=== PATIENT | female | born 1965 | race Caucasian/White ===

== ENCOUNTER 2018-12-18 15:41 | Inpatient (IN) ==
[2018-12-18 15:56] VITALS: BMI 45.4
[2018-12-18] MEDS ORDERED: DUONEB 0.5 MG/3 MG NEB ONE (16:12)
[2018-12-18] MEDS ORDERED: SOLU-Medrol 125 MG VIAL IVP ONE (16:12)
[2018-12-18 16:13] LABS: ABG BASE EXCESS 12.9 mmol/L (-2.0-2.0)
[2018-12-18 16:15] LABS: ABG HCO3 42.2 mmol/L (22-26)
--- NOTE | 2018-12-18 16:20 | DR.SOBA ---
HPI Time Seen Time Seen by Provider: 12/18/18 15:58 Primary Care Physician Primary Care Physician: ERASMO FAULKNER, BIRTH CERTIFICATE CLERK Complaints Chief Complaint Doctors Comments: Pt. is a very poor historian. She contributed nothing to hx. She states she feels good and when asked she denies dyspna. Story is that she was with her BIRTH CERTIFICATE CLERK today and was noted with a low O2 sat ( 74 %) in the office, hence she was sent to the ED. Her mother provided history on her beh care home. Chief Complaint:: PT WAS SENT HERE FROM ERASMO FAULKNER'S OFFICE TODAY AFTER BEING SEEN IN OFFICE FOR SOB. OXYGEN SAT IN OFFICE WAS 74%. PT STATES SHE HASN'T FELT GOOD IN A FEW DAYS. C/O COLD, COUGH AND CONGESTION AND STATES THAT SHE THINKS SHE HAS GAINED 30 POUNDS IN PAST WEEK. Source History Provided: Patient Mode of Arrival Mode of Arrival: Ambulatory Timing Onset of Chief Complaint: 12/18/18 PMH PMH Past Medical History: Yes Past Medical History: COPD and Schizophrenia Past Medical History Comment: BIPOLAR Past Surgical History: Yes Surgical History: Hysterectomy Family History History of Family Medical Conditions: No Social History Does patient currently use any type of tobacco product: Yes Have you used tobacco products in the last 12 months: Yes Type of Tobacco Use: Cigarettes Does any household member use tobacco: Yes Alcohol Use: None Do you use any recreational Drugs:: No Lives With: Family Lives Where: Home infectious screening In the last 2 months have you had wt loss of >10#?: NO Have you had fever, night sweats or hemotysis?: No Have you traveled outside the country in the last 6 months?: No Isolation: Standard ROS Review of Systems Constitutional: Other (Weight gain) Eyes: No Symptoms Reported ENTM: No Symptoms Reported Respiratoy: No Symptoms Reported Cardiovascular: No Symptoms Reported Gastrointestinal/Abdominal: No Symptoms Reported Genitourinary: No Symptoms Reported Neurological: No Symptoms Reported Musculoskeletal: No Symptoms Reported Integumentary: No Symptoms Reported Hematologic/Lymphatic: No Symptoms Reported Endocrine: No Symptoms Reported Psychiatric: No Symptoms Reported PE Vital Signs Vitals: Temperature 97.8 F Pulse Rate [Apical] 96 Pulse Rate 84 Respiratory Rate 25 Blood Pressure [Left Arm] 162/73 Blood Pressure 156/71 O2 Sat by Pulse Oximetry 90 General Limitations: Physical Limitation (morbid obesity) General Appearance: Alert and In No Apparent Distress Head Head Exam: Normal Inspection, Atraumatic and Normocephalic Eyes Eye exam: Normal Appearance, PERRL and EOMI ENT ENT Exam: Normal Exam, Normal Oropharynx and Mucous Membranes Moist Neck Neck Exam: Normal Inspection, Full ROM and Trachea Midline Chest Chest Inspection: Normal Inspection and Symmetric Chest Wall Rise Respiratory Respiratory Exam: Normal Lung Sounds Bilat Cardiovascular Cardiovascular Exam: Regular Rate, Normal Rhythm, +S1 and +S2 Abdominal Exam Abdominal Exam: Normal Inspection, Normal Bowel Sounds and Soft Extremities Extremities Exam: Normal Inspection and Edema Neurologic Neurological Exam: Alert and Other (oriented to self) Psychiatric Psychiatric Exam: Normal Affect and Normal Mood Skin Skin Exam: Warm, Dry and Normal Color ROR Labs Reviewed Laboratory Results Reviewed?: Yes Result Diagrams: 12/18/18 16:00 12/18/18 16:00 Laboratory: WBC 11.2 X10^3/uL (3.6-10.0) H 12/18/18 16:00 RBC 5.05 X10^6/uL (3.5-5.4) 12/18/18 16:00 Hgb 13.9 g/dL (12.0-16.0) 12/18/18 16:00 Hct 42.6 % (36.0-47.0) 12/18/18 16:00 MCV 84.3 fL (80.0-100.0) 12/18/18 16:00 MCH 27.5 pg (27.0-34.0) 12/18/18 16:00 MCHC 32.6 g/dL (33.0-35.0) L 12/18/18 16:00 RDW 17.8 % (11.6-16.5) H 12/18/18 16:00 Plt Count 305 X10^3/uL (150.0-450.0) 12/18/18 16:00 MPV 8.4 fL (7.4-11.0) 12/18/18 16:00 Neut % (Auto) 66.7 % (42.0-75.0) 12/18/18 16:00 Lymph % (Auto) 23.1 % (21.0-51.0) 12/18/18 16:00 [place] % (Auto) 7.2 % (0.0-13.0) 12/18/18 16:00 Eos % (Auto) 2.6 % (0.9-2.9) 12/18/18 16:00 Baso % (Auto) 0.4 % (0.2-1.0) 12/18/18 16:00 Neut # (Auto) 7.5 x10^3/uL (2.2-4.8) H 12/18/18 16:00 Lymph # (Auto) 2.6 X10^3/uL (1.3-2.9) 12/18/18 16:00 [place] # (Auto) 0.8 x10^3/uL (0.3-0.8) 12/18/18 16:00 Eos # (Auto) 0.3 x10^3/uL (0.0-0.2) H 12/18/18 16:00 Baso # (Auto) 0.0 X10^3/uL (0.0-0.1) 12/18/18 16:00 Absolute Nucleated RBC 0.5 /100WBC 12/18/18 16:00 Sample Site Right brachial 12/18/18 16:08 ABG pH 7.330 (7.35-7.45) L 12/18/18 16:08 ABG pCO2 80.0 mmHg (35.0-45.0) H* 12/18/18 16:08 ABG pO2 49.0 mmHg (80.0-100.0) L* 12/18/18 16:08 ABG HCO3 42.2 mmol/L (22-26) H* 12/18/18 16:08 ABG O2 Saturation 81.0 % (90-100) L* 12/18/18 16:08 ABG Base Excess 12.9 mmol/L (-2.0-2.0) H 12/18/18 16:08 Chong Test Na 12/18/18 16:08 A-a Gradient 65.0 mmHg 12/18/18 16:08 FiO2 30.0 12/18/18 16:08 Blood Gas Comments Neisha well aw 12/18/18 16:08 Sodium 125 mmol/L (136-145) L* 12/18/18 16:00 Corrected Sodium 126 mmol/L (136-145) L 12/18/18 16:00 Potassium 4.4 mmol/L (3.5-5.1) 12/18/18 16:00 Chloride 87 mmol/L (98-107) L 12/18/18 16:00 Carbon Dioxide 36.6 mmol/L (21-32) H 12/18/18 16:00 BUN 5 mg/dL (7-18) L 12/18/18 16:00 Creatinine 0.60 mg/dL (0.55-1.02) 12/18/18 16:00 Est GFR (MDRD) Af Amer > 60 (>60) 12/18/18 16:00 Est GFR (MDRD) Non-Af > 60 (>60) 12/18/18 16:00 Glucose 153 mg/dL (65-99) H 12/18/18 16:00 Calcium 8.4 mg/dL (8.5-10.1) L 12/18/18 16:00 Corrected Calcium 9.2 mg/dL (8.5-10.1) 12/18/18 16:00 Total Bilirubin 0.30 mg/dL (0.2-1.0) 12/18/18 16:00 AST 36 Units/L (15-37) 12/18/18 16:00 ALT 80 Units/L (12-78) H 12/18/18 16:00 Alkaline Phosphatase 90 Units/L (46-116) 12/18/18 16:00 B-Natriuretic Peptide 78.3 pg/mL (0-79) 12/18/18 16:00 Total Protein 6.6 g/dL (6.4-8.2) 12/18/18 16:00 Albumin 3.0 g/dL (3.4-5.0) L 12/18/18 16:00 Globulin 3.6 g/dL (2.5-4.5) 12/18/18 16:00 Albumin/Globulin Ratio 0.8 Ratio (1.1-2.1) L 12/18/18 16:00 TSH 3rd Generation 3.457 uIU/mL (0.358-3.74) 12/18/18 16:00 Specimen Type Catherized urine 12/18/18 16:38 Urine Color Yellow (YELLOW) 12/18/18 16:38 Urine Appearance Clear (CLEAR) 12/18/18 16:38 Urine pH 7.0 (5.0 - 8.0) 12/18/18 16:38 Ur Specific [place] 1.005 (1.000-1.030) 12/18/18 16:38 Urine Protein Negative (NEGATIVE) 12/18/18 16:38 Urine Glucose (UA) Negative (NEGATIVE) 12/18/18 16:38 Urine Ketones Negative (NEGATIVE) 12/18/18 16:38 Urine Occult Blood Negative (NEGATIVE) 12/18/18 16:38 Urine Nitrite Negative (NEGATIVE) 12/18/18 16:38 Urine Bilirubin Negative (NEGATIVE) 12/18/18 16:38 Urine Urobilinogen Normal (NORMAL) 12/18/18 16:38 Ur Leukocyte Esterase Negative (NEGATIVE) 12/18/18 16:38 XRAY XRAY Interpreted by: Radiologist XRAY Findings: CXR: Cardiomegaly with findings consistent with COPD. EKG Rate: 86 [place]: Normal Rhythm: NSR Block: None Hypertrophy: None Diagnosis Discharge Problem: Acute exacerbation of chronic obstructive pulmonary disease (COPD), Hyponatremia Schizophrenia Qualifiers: Schizophrenia type: undifferentiated schizophrenia Qualified Code(s): F20.3 - Undifferentiated schizophrenia
[2018-12-18] MEDS ORDERED: SOLU-Medrol 125 MG VIAL ONE (16:25)
--- NOTE | 2018-12-18 16:37 | RAD ---
HISTORY: 53-year-old female with hypoxia and history of COPD. Study: Frontal view of the chest. Comparison: None. Findings: The trachea is midline. The cardiac silhouette is enlarged with prominent interstitium and perihilar lung markings. The lungs are clear without focal consolidation, effusion or pneumothorax. Soft tissues are unremarkable. Osseous structures are unremarkable. IMPRESSION: 1. Cardiomegaly with findings consistent with history of COPD. Reported By:
[2018-12-18 16:47] LABS: BILIRUBIN,URINE NEGATIVE (NEGATIVE); BLOOD/HEMOGLOBIN,URINE NEGATIVE (NEGATIVE); GLUCOSE, URINE NEGATIVE (NEGATIVE); KETONES,URINE NEGATIVE (NEGATIVE); LEUKOCYTE ESTERASE ,URINE NEGATIVE (NEGATIVE); NITRITES,URINE NEGATIVE (NEGATIVE); PROTEIN,URINE NEGATIVE (NEGATIVE); UROBILINOGEN,URINE NORMAL (NORMAL)
[2018-12-18 16:52] LABS: APPEARANCE,URINE CLEAR (CLEAR); COLOR,URINE YELLOW (YELLOW)
[2018-12-18 17:01] LABS: BASOPHILS % (AUTO) 0.4 % (0.2-1.0); EOSINOPHILS # (AUTO) 0.3 x10^3/uL (0.0-0.2); EOSINOPHILS % (AUTO) 2.6 % (0.9-2.9); HEMATOCRIT 42.6 % (36.0-47.0); HEMOGLOBIN 13.9 g/dL (12.0-16.0); LYMPHOCYTES # (AUTO) 2.6 X10^3/uL (1.3-2.9); LYMPHOCYTES % (AUTO) 23.1 % (21.0-51.0); MEAN CORPUSCULAR HEMOGLOBIN 27.5 pg (27.0-34.0); MEAN CORPUSCULAR HGB CONC 32.6 g/dL (33.0-35.0); MEAN CORPUSCULAR VOLUME 84.3 fL (80.0-100.0); MEAN PLATELET VOLUME 8.4 fL (7.4-11.0); MONOCYTES # (AUTO) 0.8 x10^3/uL (0.3-0.8); MONOCYTES % (AUTO) 7.2 % (0.0-13.0); NEUTROPHILS # (AUTO) 7.5 x10^3/uL (2.2-4.8); NEUTROPHILS % (AUTO) 66.7 % (42.0-75.0); PLATELET COUNT 305 X10^3/uL (150.0-450.0); RED BLOOD COUNT 5.05 X10^6/uL (3.5-5.4); RED CELL DISTRIBUTION WIDTH 17.8 % (11.6-16.5); WHITE BLOOD COUNT 11.2 X10^3/uL (3.6-10.0)
[2018-12-18 17:06] LABS: BLOOD UREA NITROGEN 5 mg/dL (7-18); CALCIUM 8.4 mg/dL (8.5-10.1); CARBON DIOXIDE 36.6 mmol/L (21-32); CHLORIDE 87 mmol/L (98-107); COR NA(FOR HYPERGLY) 126 mmol/L (136-145); eGFR NON BLACK RACES > 60 (>60)
[2018-12-18 17:19] LABS: ALANINE AMINOTRANSFERASE 80 Units/L (12-78); ALKALINE PHOSPHATASE 90 Units/L (46-116); ASPARTATE AMINO TRANSFERASE 36 Units/L (15-37); COR CA(FOR HYPOALB) 9.2 mg/dL (8.5-10.1); TOTAL PROTEIN 6.6 g/dL (6.4-8.2); TSH (3RD GENERATION) 3.457 uIU/mL (0.358-3.74)
[2018-12-18 17:21] LABS: SODIUM 125 mmol/L (136-145)
[2018-12-18] MEDS ORDERED: DUONEB 0.5 MG/3 MG ONE (17:34)
[2018-12-18] MEDS ORDERED: NICOTINE PATCH TD ONE (17:47)
[2018-12-18] MEDS ORDERED: ATIVAN INJ 2 MG VIAL ONE (17:53)
[2018-12-18] MEDS ORDERED: LASIX IVP ONE ×2 (17:55→18:00)
[2018-12-18] MEDS ORDERED: ATIVAN INJ 2 MG VIAL IVP ONE (17:55)
[2018-12-18] MEDS ORDERED: HALDOL INJ ONE (19:25)
[2018-12-18] MEDS: HALDOL INJ IM PRN (19:33)
[2018-12-18] MEDS: ATIVAN INJ 2 MG VIAL IVP PRN (21:06)
--- NOTE | 2018-12-18 22:01 | DR.H&P ---
H&P - History & Physical for Day of: H&P Date: 12/18/18 - Chief Complaint Chief Complaint: SOB, C/C/C - History of Present Illness History of Present Illness: IS A 53 YEAR OLD PATIENT OF OURS. SHE PRESENTED TO ER WITH COMPLAINTS OF SHORTNESS OF BREATH, COUGH, COLD, CONGESTION, AND WEIGHT GAIN. SHE WAS SEEN IN THE OFFICE TODAY AND WAS NOTED WITH OXYGEN SATURATIONS IN THE 70S. SHE WAS SENT TO THE ER FOR FURTHER EVALUATION. SHE HAS A MEDICAL HISTORY OF COPD, SCHIZOPHRENIA, AND BIPOLAR DISORDER. ON ARRIVAL, VITALS WERE 97.8-87-18-88%-160/81. LABS WERE OBTAINED. ABNORMAL LAB VALUES INCLUDE THE FOLLOWING: WBC 11.2, SODIUM 125, CHLORIDE 87, CARBON DIOXIDE 36.6, BUN 5, GLUCOSE 153, CALCIUM 8.4. ALT 80, ALBUMIN 3.0. ABG REVEALED: PH 7.330, PC02 80.0, P02 49.0, HC03 42.2, 02 SATURATION 81.0, BASE EXCESS 12.9. CHEST XRAY OBTAINED AND REVEALED: Cardiomegaly with findings consistent with history of COPD. EKG REVEALED: SINUS RHYTHM WITH HR 86. SHE WAS PLACED ON THE BIPAP. PATIENT BECAME AGITATED AND REFUSED TO WEAR BIPAP. SHE AGREED TO WEAR THE VENTIMASK. SHE WAS GIVEN LASIX 40MG IV X 1, ATIVAN 1MG IV X 1, SOLU-MEDROL 125MG IV X 1, AND A DUONEB IN THE ER. SHE WAS ADMITTED FOR FURTHER EVALUATION AND TREATMENT OF COPD EXACERBATION, HYPONATREMIA, AND CHF. SHE WAS STARTED ON RESPIRATORY TREATMENTS, SOLU-MEDROL 80MG IV Q8H, LORAZEPAN 1MG IV Q3-4H PRN, AND HALDOL 2.5MG IM Q8H PRN. WE PLAN TO FOLLOW UP WITH AM LABS AND CHEST XRAY AND CONTINUE TO MONITOR. - Past Medical History Past Medical History: Schizophrenia, COPD - Past Surgical History Surgical History: Hysterectomy - Social History Does patient currently use any type of tobacco product: Yes Have you used tobacco products in the last 12 months: Yes Type of Tobacco Use: Cigarettes Does any household member use tobacco: Yes Alcohol Use: None - Medications Home Medications: codeine Allergy (Verified 12/18/18 15:59) CONTINUE taking the following medications benztropine 1 mg PO DAILY 12/18/18 [History] cariprazine [Vraylar] 1.5 mg PO DAILY 12/18/18 [History] cefdinir 300 mg PO BID 12/18/18 [History] clonazepam 0.5 mg PO BID 12/18/18 [History] divalproex 1,000 mg PO HS 12/18/18 [History] haloperidol 10 mg PO BID 12/18/18 [History] quetiapine 50 mg PO BID 12/18/18 [History] - Review of Systems Constitutional: Malaise Eyes: No Symptoms Reported ENT: Nose Congestion Respiratory: Cough, Shortness of Breath, SOB with Excertion Cardiovascular: Edema (lower extremities ) Gastrointestinal: No Symptoms Reported Genitourinary: No Symptoms Reported Musculoskeletal: No Symptoms Reported Skin: No Symptoms Reported Neurological: Weakness - Physical Exam Vital Signs: Temperature 97.8 F Pulse Rate [Apical] 96 Pulse Rate 84 Respiratory Rate 25 Blood Pressure [Left Arm] 162/73 Blood Pressure 156/71 O2 Sat by Pulse Oximetry 90 Oriented: Normal Eyes: Normal Ear: Normal Nose: Normal Throat: Normal Respiratory: Wheezes Throughout Cardiovascular: Normal : Normal Auscultation: Bowel Sounds: Normal Palpation: Normal Tenderness: Normal Skin: Normal Musculoskeletal: Normal Psychiatric: Anxiety, Agitation Mood Description: Anxious Affect: Anxious Speech Pattern: Clear - Assessment/Plan (1) Acute exacerbation of chronic obstructive pulmonary disease (COPD) Status: Acute Plan: solu-medrol 80mg iv q8h, respiratory tx, supplemental oxygen, bipap, monitor labs and chest xray (2) CHF (congestive heart failure) Qualifiers: Heart failure type: unspecified Heart failure chronicity: acute Qualified Code(s): I50.9 - Heart failure, unspecified Status: Acute Plan: obtain echo, continue to monitor (3) Hyponatremia Status: Acute Plan: continue to monitor (4) Schizophrenia Qualifiers: Schizophrenia type: undifferentiated schizophrenia Qualified Code(s): F20.3 - Undifferentiated schizophrenia Status: Acute Plan: haldol iv prn, ativan iv prn, continue home meds - Allergies Allergies/Adverse Reactions: Allergies Allergy/AdvReac Type Severity Reaction Status Date / Time codeine Allergy Verified 12/18/18 15:59
[2018-12-18] MEDS: DUONEB 0.5 MG/3 MG NEB SCH (22:17)
[2018-12-19] MEDS: SOLU-Medrol 40 MG VIAL IVP SCH ×4 (01:53→21:05)
[2018-12-19 05:18] LABS: ABG PCO2 > 115.0 mmHg (35.0-45.0)
[2018-12-19] MEDS ORDERED: HumuLIN R SUBCUT PRN (05:52)
[2018-12-19 06:09] LABS: BASOPHILS % (AUTO) 0.1 % (0.2-1.0); HEMATOCRIT 43.6 % (36.0-47.0); HEMOGLOBIN 14.1 g/dL (12.0-16.0); LYMPHOCYTES # (AUTO) 0.3 X10^3/uL (1.3-2.9); LYMPHOCYTES % (AUTO) 2.9 % (21.0-51.0); MEAN CORPUSCULAR HEMOGLOBIN 27.4 pg (27.0-34.0); MEAN CORPUSCULAR HGB CONC 32.4 g/dL (33.0-35.0); MEAN CORPUSCULAR VOLUME 84.7 fL (80.0-100.0); MEAN PLATELET VOLUME 7.8 fL (7.4-11.0); MONOCYTES # (AUTO) 0.2 x10^3/uL (0.3-0.8); MONOCYTES % (AUTO) 1.4 % (0.0-13.0); NEUTROPHILS # (AUTO) 10.2 x10^3/uL (2.2-4.8); NEUTROPHILS % (AUTO) 95.6 % (42.0-75.0); PLATELET COUNT 268 X10^3/uL (150.0-450.0); RED BLOOD COUNT 5.14 X10^6/uL (3.5-5.4); RED CELL DISTRIBUTION WIDTH 17.9 % (11.6-16.5); WHITE BLOOD COUNT 10.7 X10^3/uL (3.6-10.0)
[2018-12-19 06:25] LABS: ALANINE AMINOTRANSFERASE 77 Units/L (12-78); ALBUMIN 2.8 g/dL (3.4-5.0); ALKALINE PHOSPHATASE 87 Units/L (46-116); ASPARTATE AMINO TRANSFERASE 29 Units/L (15-37); BLOOD UREA NITROGEN 6 mg/dL (7-18); CALCIUM 8.4 mg/dL (8.5-10.1); CARBON DIOXIDE 39.6 mmol/L (21-32); CHLORIDE 93 mmol/L (98-107); COR CA(FOR HYPOALB) 9.4 mg/dL (8.5-10.1); COR NA(FOR HYPERGLY) 133 mmol/L (136-145); CREATININE 0.55 mg/dL (0.55-1.02); SODIUM 131 mmol/L (136-145); TOTAL PROTEIN 6.6 g/dL (6.4-8.2); eGFR NON BLACK RACES > 60 (>60)
[2018-12-19 06:56] LABS: ABG BASE EXCESS 16.1 mmol/L (-2.0-2.0)
[2018-12-19 06:57] LABS: ABG HCO3 48.4 mmol/L (22-26)
[2018-12-19 07:00] LABS: PLATELET MORPHOLOGY COMMENT NORMAL (NORMAL)
--- NOTE | 2018-12-19 07:49 | RAD ---
History: Shortness of breath and hypoxia Study: AP chest Comparison: Yesterday Findings: There is unchanged mild to moderate cardiomegaly. There is no significant effusion. There is mild diffuse interstitial lung disease. There is no atelectasis or focal consolidation. Impression: Mild cardiomegaly. No definite acute disease Reported By:
[2018-12-19 08:29] LABS: ABG BASE EXCESS 18.6 mmol/L (-2.0-2.0)
[2018-12-19 08:30] LABS: ABG HCO3 48.6 mmol/L (22-26)
[2018-12-19] MEDS: DUONEB 0.5 MG/3 MG NEB SCH ×4 (09:02→20:29)
[2018-12-19] MEDS: ATIVAN INJ 2 MG VIAL IVP PRN ×5 (09:09→22:07)
[2018-12-19] MEDS: HALDOL INJ IM PRN ×2 (09:09→17:47)
[2018-12-19] MEDS: BENADRYL INJ 50 MG VIAL IVP PRN ×4 (10:55→22:40)
[2018-12-19] MEDS: LOVENOX INJ 100 MG SYR SC SCH ×2 (11:03→20:32)
[2018-12-19] MEDS: PULMICORT NEB TX 0.5 MG NEB SCH ×2 (11:22→20:30)
[2018-12-19] MEDS: DIFLUCAN 100 MG IV (MIX by PHARMACY)* 100 MG/50 ML BAG IV SCH (11:51)
[2018-12-19] MEDS: SNACK - Diabetic Appropriate PO SCH (19:45)
[2018-12-20] MEDS: ATIVAN INJ 2 MG VIAL IVP PRN ×5 (03:50→20:56)
[2018-12-20] MEDS: BENADRYL INJ 50 MG VIAL IVP PRN ×4 (03:51→18:27)
[2018-12-20 04:20] LABS: ABG HCO3 53.7 mmol/L (22-26)
[2018-12-20] MEDS: HALDOL INJ IM PRN ×3 (04:52→15:36)
[2018-12-20] MEDS: SOLU-Medrol 40 MG VIAL IVP SCH ×3 (05:48→21:10)
[2018-12-20 06:43] LABS: BASOPHILS % (AUTO) 0.2 % (0.2-1.0); HEMATOCRIT 43.9 % (36.0-47.0); HEMOGLOBIN 13.8 g/dL (12.0-16.0); LYMPHOCYTES # (AUTO) 0.8 X10^3/uL (1.3-2.9); LYMPHOCYTES % (AUTO) 4.9 % (21.0-51.0); MEAN CORPUSCULAR HGB CONC 31.5 g/dL (33.0-35.0); MEAN CORPUSCULAR VOLUME 85.6 fL (80.0-100.0); MEAN PLATELET VOLUME 8.3 fL (7.4-11.0); MONOCYTES # (AUTO) 1.8 x10^3/uL (0.3-0.8); MONOCYTES % (AUTO) 11.4 % (0.0-13.0); NEUTROPHILS % (AUTO) 83.5 % (42.0-75.0); PLATELET COUNT 277 X10^3/uL (150.0-450.0); RED BLOOD COUNT 5.13 X10^6/uL (3.5-5.4); RED CELL DISTRIBUTION WIDTH 17.8 % (11.6-16.5); WHITE BLOOD COUNT 15.5 X10^3/uL (3.6-10.0)
--- NOTE | 2018-12-20 06:50 | RAD ---
HISTORY: Hypoxia, shortness of breath Study: Chest AP portable Comparison: 12/19/2018 Findings: Heart remains enlarged. No definite congestive heart failure is noted. No definite acute alveolar infiltrates or pleural effusions are identified. Interstitial lung disease is unchanged. The bony thorax is unremarkable. IMPRESSION: Persistent cardiomegaly without definite congestive heart failure No acute alveolar infiltrates. Reported By:
[2018-12-20 07:00] LABS: ALANINE AMINOTRANSFERASE 62 Units/L (12-78); ALBUMIN 2.8 g/dL (3.4-5.0); ALKALINE PHOSPHATASE 79 Units/L (46-116); ASPARTATE AMINO TRANSFERASE 26 Units/L (15-37); BLOOD UREA NITROGEN 11 mg/dL (7-18); CHLORIDE 95 mmol/L (98-107); COR NA(FOR HYPERGLY) 140 mmol/L (136-145); CREATININE 0.59 mg/dL (0.55-1.02); SODIUM 139 mmol/L (136-145); TOTAL PROTEIN 6.6 g/dL (6.4-8.2); eGFR NON BLACK RACES > 60 (>60)
[2018-12-20 07:03] LABS: CARBON DIOXIDE 41.1 mmol/L (21-32)
[2018-12-20] MEDS: PULMICORT NEB TX 0.5 MG NEB SCH ×2 (08:35→20:31)
[2018-12-20] MEDS: DUONEB 0.5 MG/3 MG NEB SCH ×4 (08:35→20:31)
[2018-12-20] MEDS: LOVENOX INJ 100 MG SYR SC SCH ×2 (09:00→20:55)
[2018-12-20] MEDS: DIFLUCAN 100 MG IV (MIX by PHARMACY)* 100 MG/50 ML BAG IV SCH (10:00)
[2018-12-20] MEDS ORDERED: GLUCOPHAGE ONE ×2 (10:57→20:33)
[2018-12-20] MEDS: SEROquel TAB 100 MG PO SCH ×2 (11:04→17:21)
[2018-12-20] MEDS: KLONOPIN TAB 0.5 MG PO SCH ×3 (11:05→20:55)
[2018-12-20] MEDS: COGENTIN TAB 1 MG PO SCH ×2 (11:05→11:33)
[2018-12-20] MEDS: GLUCOPHAGE PO SCH ×3 (11:05→20:58)
[2018-12-20] MEDS: CARIPRAZINE 1.5 MG PO SCH (11:32)
[2018-12-20 19:49] LABS: ABG HCO3 53.2 mmol/L (22-26)
[2018-12-20] MEDS ORDERED: DEPAKOTE ER PO SCH (21:00)
--- NOTE | 2018-12-20 21:22 | PCM.PROG ---
Progress Note - Progress Note for Day of Date of Exam: 12/19/18 - Subjective Subjective: WAS ADMITTED FOR COPD EXACERBATION, HYPONATREMIA, AND CHF. HYPONATREMIA IS LIKELY RELATED TO THE MEDICATIONS THAT SHE IS ON FOR SCHIZOPHRENIA AND BIPOLAR DISORDER. TODAY, SHE IS LYING IN BED WITH EYES CLOSED ON MORNING ROUNDS. SHE IS UTILIZING THE BIPAP UPON ROUNDS. STAFF REPORTS THAT SHE HAS BEEN COMBATIVE AND AGITATED. SHE WAS JUST RECENTLY GIVEN A DOSE OF HALDOL AND ATIVAN. ON EXAMINATION, HEART IS REGULAR IN RATE AND RHYTHM. BILATERAL LUNGS ARE NOTED WITH DIMINISHED LUNG SOUNDS THROUGHOUT. ABDOMEN IS ROUND, SOFT, AND NON-TENDER WITH NORMAL BOWEL SOUNDS NOTED IN ALL QUADRANTS. LOWER EXTREMITIES ARE NOTED WITH 1+ PITTING EDEMA. HER VITALS THIS MORNING ARE 97.6-67-25-100% BIPAP-117/64. LABS WERE OBTAINED. ABNORMAL LAB VALUES INCLUDE THE FOLLOWING: WBC 11.2, SODIUM 131, CHLORIDE 93, CARBON DIOXIDE 39.6, BUN 6, GLUCOSE 200, CALCIUM 8.4, ALBUMIN 2.8. AN ABG WAS OBTAINED THIS MORNING ON BIPAP WITH Fi02 70.0. IT REVEALED: PH 7.350, PC02 88.0, P02 63.0, HC03 48.6, 02 SA TURATION 91, BASE EXCESS 18.6. A CHEST XRAY WAS OBTAINED AND REVEALED: There is unchanged mild to moderate cardiomegaly. There is no significant effusion. There is mild diffuse interstitial lung disease. There is no atelectasis or focal consolidation. SHE IS CURRENTLY RECEIVING RESPIRATORY TX, SOLU-MEDROL 80MG IV Q8H, HUMULIN R SLIDING SCALE, HALDOL PRN, AND ATIVAN PRN. TODAY, WE WILL START LOVENOX 100MG SC BID FOR DVT PROPHYLAXIS, ADD PULMICORT NEB TX, INCREASE HALDOL TO Q4H PRN, ADD DIFLUCAN 100MG IV DAILY, AND BENADRYL 25MG IV Q4H PRN. WE WILL OBTAIN AN ECHO TODAY. OTHERWISE, WE PLAN TO FOLLOW UP WITH AM LABS AND CONTINUE TO MONITOR. - Past Medical Family Social History Past Med/Fam/Surg Hx: No changes since H&P Allergies: Allergies codeine Allergy (Verified 12/18/18 15:59) - Review of Systems ROS: No change since H&P - Vital Signs and I&O's Vital Signs: Temperature 98.2 F Pulse Rate [Apical] 96 Pulse Rate 85 Respiratory Rate 29 Blood Pressure [Right Arm] 142/67 Blood Pressure [Left Arm] 151/74 Blood Pressure 156/71 O2 Sat by Pulse Oximetry 96 Intake and Output: Intake & Output 12/18/18 12/19/18 12/20/18 12/21/18 11:59 11:59 11:59 11:59 Intake Total 160 / 160 410 / 410 100 / 100 Output Total 7350 / 7350 2700 / 2700 550 / 550 Balance -7190 / -7190 -2290 / -2290 -450 / -450 - Physical Exam Oriented: Normal Eyes: Normal Ear: Normal Nose: Normal Throat: Normal Respiratory: Generalized, Diminished Cardiovascular: Normal : Normal Auscultation: Bowel Sounds: Normal Palpation: Normal Tenderness: Normal Skin: Normal Musculoskeletal: Normal Psychiatric: Anxiety, Agitation Mood Description: Anxious Affect: Anxious Speech Pattern: Clear - Laboratory and Diagnostics Result Diagrams: 12/20/18 05:07 12/20/18 05:07 Labs: Laboratory WBC 15.5 X10^3/uL (3.6-10.0) H 12/20/18 05:07 RBC 5.13 X10^6/uL (3.5-5.4) 12/20/18 05:07 Hgb 13.8 g/dL (12.0-16.0) 12/20/18 05:07 Hct 43.9 % (36.0-47.0) 12/20/18 05:07 MCV 85.6 fL (80.0-100.0) 12/20/18 05:07 MCH 27.0 pg (27.0-34.0) 12/20/18 05:07 MCHC 31.5 g/dL (33.0-35.0) L 12/20/18 05:07 RDW 17.8 % (11.6-16.5) H 12/20/18 05:07 Plt Count 277 X10^3/uL (150.0-450.0) 12/20/18 05:07 Plt Count Comment Adequate (ADEQUATE) 12/19/18 05:50 MPV 8.3 fL (7.4-11.0) 12/20/18 05:07 Neut % (Auto) 83.5 % (42.0-75.0) H 12/20/18 05:07 Lymph % (Auto) 4.9 % (21.0-51.0) L 12/20/18 05:07 [place] % (Auto) 11.4 % (0.0-13.0) 12/20/18 05:07 Eos % (Auto) 0.0 % (0.9-2.9) L 12/20/18 05:07 Baso % (Auto) 0.2 % (0.2-1.0) 12/20/18 05:07 Neut # (Auto) 13.0 x10^3/uL (2.2-4.8) H 12/20/18 05:07 Lymph # (Auto) 0.8 X10^3/uL (1.3-2.9) L 12/20/18 05:07 [place] # (Auto) 1.8 x10^3/uL (0.3-0.8) H 12/20/18 05:07 Eos # (Auto) 0.0 x10^3/uL (0.0-0.2) 12/20/18 05:07 Baso # (Auto) 0.0 X10^3/uL (0.0-0.1) 12/20/18 05:07 Absolute Nucleated RBC 0.1 /100WBC 12/20/18 05:07 Total Counted 100 12/19/18 05:50 Neutrophils % (Manual) 92 % (39-76) H 12/19/18 05:50 Lymphocytes % (Manual) 6 % (13-43) L 12/19/18 05:50 Monocytes % (Manual) 2 % (4-9) L 12/19/18 05:50 Plt Morphology Comment Normal (NORMAL) 12/19/18 05:50 RBC Morphology Normal (NORMAL) 12/19/18 05:50 Sample Site R bra 12/20/18 19:42 ABG pH 7.380 (7.35-7.45) 12/20/18 19:42 ABG pCO2 90.0 mmHg (35.0-45.0) H* 12/20/18 19:42 ABG pO2 87.0 mmHg (80.0-100.0) 12/20/18 19:42 ABG HCO3 53.2 mmol/L (22-26) H* 12/20/18 19:42 ABG O2 Saturation 96.0 % (90-100) 12/20/18 19:42 ABG Base Excess 23.0 mmol/L (-2.0-2.0) H 12/20/18 19:42 Chong Test Na 12/20/18 19:42 A-a Gradient 300.0 mmHg 12/20/18 19:42 FiO2 70.0 12/20/18 19:42 Blood Gas Comments Neisha well gmb 12/20/18 19:42 Sodium 139 mmol/L (136-145) 12/20/18 05:07 Corrected Sodium 140 mmol/L (136-145) 12/20/18 05:07 Potassium 4.6 mmol/L (3.5-5.1) 12/20/18 05:07 Chloride 95 mmol/L (98-107) L 12/20/18 05:07 Carbon Dioxide 41.1 mmol/L (21-32) H* 12/20/18 05:07 BUN 11 mg/dL (7-18) 12/20/18 05:07 Creatinine 0.59 mg/dL (0.55-1.02) 12/20/18 05:07 Est GFR (MDRD) Af Amer > 60 (>60) 12/20/18 05:07 Est GFR (MDRD) Non-Af > 60 (>60) 12/20/18 05:07 Glucose 156 mg/dL (65-99) H 12/20/18 05:07 POC Glucose (mg/dL) 165 mg/dL (65-99) H 12/20/18 20:54 Calcium 9.0 mg/dL (8.5-10.1) 12/20/18 05:07 Corrected Calcium 10.0 mg/dL (8.5-10.1) 12/20/18 05:07 Total Bilirubin 0.30 mg/dL (0.2-1.0) 12/20/18 05:07 AST 26 Units/L (15-37) 12/20/18 05:07 ALT 62 Units/L (12-78) 12/20/18 05:07 Alkaline Phosphatase 79 Units/L (46-116) 12/20/18 05:07 B-Natriuretic Peptide 78.3 pg/mL (0-79) 12/18/18 16:00 Total Protein 6.6 g/dL (6.4-8.2) 12/20/18 05:07 Albumin 2.8 g/dL (3.4-5.0) L 12/20/18 05:07 Globulin 3.8 g/dL (2.5-4.5) 12/20/18 05:07 Albumin/Globulin Ratio 0.7 Ratio (1.1-2.1) L 12/20/18 05:07 TSH 3rd Generation 3.457 uIU/mL (0.358-3.74) 12/18/18 16:00 Specimen Type Catherized urine 12/18/18 16:38 Urine Color Yellow (YELLOW) 12/18/18 16:38 Urine Appearance Clear (CLEAR) 12/18/18 16:38 Urine pH 7.0 (5.0 - 8.0) 12/18/18 16:38 Ur Specific [place] 1.005 (1.000-1.030) 12/18/18 16:38 Urine Protein Negative (NEGATIVE) 12/18/18 16:38 Urine Glucose (UA) Negative (NEGATIVE) 12/18/18 16:38 Urine Ketones Negative (NEGATIVE) 12/18/18 16:38 Urine Occult Blood Negative (NEGATIVE) 12/18/18 16:38 Urine Nitrite Negative (NEGATIVE) 12/18/18 16:38 Urine Bilirubin Negative (NEGATIVE) 12/18/18 16:38 Urine Urobilinogen Normal (NORMAL) 12/18/18 16:38 Ur Leukocyte Esterase Negative (NEGATIVE) 12/18/18 16:38 - Plan (1) Acute exacerbation of chronic obstructive pulmonary disease (COPD) Status: Acute Plan: solu-medrol 80mg iv q8h, respiratory tx, supplemental oxygen, bipap, monitor labs and chest xray (2) CHF (congestive heart failure) Status: Acute Qualifiers: Heart failure type: unspecified Heart failure chronicity: acute Qualified Code(s): I50.9 - Heart failure, unspecified Plan: obtain echo, continue to monitor (3) Hyponatremia Status: Acute Plan: continue to monitor (4) Schizophrenia Status: Acute Qualifiers: Schizophrenia type: undifferentiated schizophrenia Qualified Code(s): F20.3 - Undifferentiated schizophrenia Plan: haldol iv prn, ativan iv prn, continue home meds
[2018-12-20] MEDS: SNACK - Diabetic Appropriate PO SCH (22:40)
[2018-12-21] MEDS: BENADRYL INJ 50 MG VIAL IVP PRN ×2 (01:06→11:20)
[2018-12-21] MEDS: ATIVAN INJ 2 MG VIAL IVP PRN ×3 (02:04→11:02)
[2018-12-21 05:24] LABS: BASOPHILS % (AUTO) 0.1 % (0.2-1.0); HEMATOCRIT 41.8 % (36.0-47.0); LYMPHOCYTES # (AUTO) 0.7 X10^3/uL (1.3-2.9); LYMPHOCYTES % (AUTO) 5.6 % (21.0-51.0); MEAN CORPUSCULAR HEMOGLOBIN 26.6 pg (27.0-34.0); MEAN CORPUSCULAR HGB CONC 31.1 g/dL (33.0-35.0); MEAN CORPUSCULAR VOLUME 85.5 fL (80.0-100.0); MONOCYTES # (AUTO) 0.7 x10^3/uL (0.3-0.8); MONOCYTES % (AUTO) 5.1 % (0.0-13.0); NEUTROPHILS # (AUTO) 11.3 x10^3/uL (2.2-4.8); NEUTROPHILS % (AUTO) 89.2 % (42.0-75.0); PLATELET COUNT 256 X10^3/uL (150.0-450.0); RED BLOOD COUNT 4.88 X10^6/uL (3.5-5.4); RED CELL DISTRIBUTION WIDTH 17.9 % (11.6-16.5); WHITE BLOOD COUNT 12.6 X10^3/uL (3.6-10.0)
[2018-12-21 05:38] LABS: ALANINE AMINOTRANSFERASE 50 Units/L (12-78); ALBUMIN 2.8 g/dL (3.4-5.0); ALKALINE PHOSPHATASE 69 Units/L (46-116); ASPARTATE AMINO TRANSFERASE 19 Units/L (15-37); BLOOD UREA NITROGEN 13 mg/dL (7-18); CALCIUM 8.9 mg/dL (8.5-10.1); CHLORIDE 97 mmol/L (98-107); COR CA(FOR HYPOALB) 9.9 mg/dL (8.5-10.1); COR NA(FOR HYPERGLY) 141 mmol/L (136-145); CREATININE 0.57 mg/dL (0.55-1.02); SODIUM 140 mmol/L (136-145); TOTAL PROTEIN 6.4 g/dL (6.4-8.2); eGFR NON BLACK RACES > 60 (>60)
[2018-12-21] MEDS: SOLU-Medrol 40 MG VIAL IVP SCH ×2 (05:43→15:49)
--- NOTE | 2018-12-21 05:53 | RAD ---
Examination: AP chest, two views History: CHF SOB Comparison 12/20/2018 Findings: Continued cardiac enlargement. No definite consolidation, pneumothorax or large pleural effusion is evident. Impression: Stable cardiac enlargement with no acute pulmonary or pleural lesion identified. Reported By:
[2018-12-21 05:58] LABS: CARBON DIOXIDE 43.3 mmol/L (21-32)
[2018-12-21 06:20] LABS: ABG BASE EXCESS 24.1 mmol/L (-2.0-2.0)
[2018-12-21 06:23] LABS: ABG ALLEN TEST POS; ABG HCO3 55.2 mmol/L (22-26)
[2018-12-21] MEDS: DIFLUCAN 100 MG IV (MIX by PHARMACY)* 100 MG/50 ML BAG IV SCH (08:48)
[2018-12-21] MEDS: HALDOL INJ IM PRN (09:06)
[2018-12-21] MEDS: CARIPRAZINE 1.5 MG PO SCH (09:43)
[2018-12-21] MEDS: GLUCOPHAGE PO SCH (09:43)
[2018-12-21] MEDS: COGENTIN TAB 1 MG PO SCH (09:43)
[2018-12-21] MEDS: DUONEB 0.5 MG/3 MG NEB SCH ×3 (09:44→19:18)
[2018-12-21] MEDS: PULMICORT NEB TX 0.5 MG NEB SCH (09:44)
[2018-12-21] MEDS: KLONOPIN TAB 0.5 MG PO SCH (09:44)
[2018-12-21] MEDS: SEROquel TAB 100 MG PO SCH ×2 (09:44→19:32)
[2018-12-21] MEDS ORDERED: NICOTINE PATCH TD SCH (10:00)
[2018-12-21] MEDS ORDERED: XYLOCAINE 1 % (PLAIN) ONE (11:43)
--- NOTE | 2018-12-21 12:26 | RAD ---
Examination: Portable AP chest History: SOB CHF Comparison reference 4:55 a.m. 12/21/2018 Findings: There is no change in appearance of heart or lungs. There is a new left subclavian catheter extending to the SVC. No pneumothorax seen. Impression: Stable cardiomegaly. Left subclavian line insertion with no obvious complication. Reported By:
[2018-12-21] MEDS ORDERED: DIPRIVAN VIAL 20 ML ONE (14:28)
[2018-12-21] MEDS ORDERED: NS 1000 ML 1,000 ML ONE (14:28)
[2018-12-21] MEDS ORDERED: DIPRIVAN PREMIX 1 GRAM IV 1,000 MG/100 ML VIAL ONE ×3 (14:29→19:06)
[2018-12-21] MEDS: DIPRIVAN PREMIX 1 GRAM IV 1,000 MG/100 ML VIAL IV PRN ×2 (14:29→17:18)
[2018-12-21] MEDS ORDERED: QUELICIN (OR ANECTINE) ONE (14:29)
[2018-12-21] MEDS ORDERED: VERSED ONE (15:21)
[2018-12-21] MEDS ORDERED: NS 100 ML IV 100 ML IV ONE (15:21)
[2018-12-21] MEDS ORDERED: VERSED 100 MG in NS 100 ML IV 80 ML IV PRN (15:43)
--- NOTE | 2018-12-21 15:49 | RAD ---
Examination: AP chest History: Intubation placement Comparison reference 12:23 p.m. 12/21/2018 Findings: There is no change in appearance of the heart, lungs or position of the left subclavian line. Endotracheal tube is now present, somewhat high in position at the level of T1. Impression: Stable appearance of heart and lungs. Interval intubation. ET tube tip in upper trachea as described. Reported By:
[2018-12-21] MEDS ORDERED: NS 1000 ML 1,000 ML IV SCH (16:00)
[2018-12-21] MEDS: LOVENOX INJ 100 MG SYR SC SCH (16:16)
[2018-12-21 16:18] LABS: ABG HCO3 51.1 mmol/L (22-26)
--- NOTE | 2018-12-21 17:46 | RAD ---
AP chest Indication: Intubation Comparison: Radiographs performed earlier on same day at 3:43 p.m. Findings: Endotracheal tube has been placed approximately 4 cm above the nicole in satisfactory positioning. A left-sided subclavian central venous catheter has also been placed terminating within the upper SVC. Heart size remains enlarged. There is right middle and lower lobe atelectasis. Chronic interstitial lung changes and pulmonary vascular congestion are unchanged. No pleural effusion. No pneumothorax. Impression: 1.Endotracheal tube is now in satisfactory position approximately 4 cm above the nicole. No pneumothorax. 2. Right middle and lower lobe atelectasis likely in the setting of mucoid impaction or aspiration. Continued follow-up is recommended. 3. Stable cardiomegaly and pulmonary vascular congestion. Reported By:
[2018-12-21 19:31] VITALS: BP 148/78
[2018-12-22] MEDS: DIPRIVAN PREMIX 1 GRAM IV 1,000 MG/100 ML VIAL IV PRN (06:50)
== END 2018-12-21 19:01 | disposition short-term general hospital (02) | DRG 208 ==
LOC: ER 15:44 → ICU 18:22
PROVIDERS: ADMIT Internal Medicine; ATTEND Internal Medicine
DX: I50.9 Heart failure, unspecified; Z78.1 Physical restraint status; R06.02 Shortness of breath; I51.7 Cardiomegaly; E87.1 Hypo-osmolality and hyponatremia; F31.89 Other bipolar disorder; F20.3 Undifferentiated schizophrenia; E66.8 Other obesity; J44.1 Chronic obstructive pulmonary disease with (acute) exacerbation
CPT/HCPCS: 31500; 36415; 36556; 36600; 51702; 71010; 71045; 80053; 81003; 82803; 83880; 84443; 85025; 87070; 87205; 93005; 93306; 94002; 94640; 94660; 96365; 96372; 96374; 96375; 99283; 99284; 99285; A4222; A4618; A7030; J0330; J1200; J1450; J1630; J1650; J1815; J1940; J2060; J2250; J2704; J2920; J2930; J3490; J7030; J7050; J7620; J7626